=== PATIENT | female | born 1955 | race Caucasian/White ===

== ENCOUNTER → 2016-08-21 | Outpatient (CLI) | payer OTHER, SELFPAY | LOC: US 08-17 13:30 | DX: M79.89 Other specified soft tissue disorders (principal) | CPT/HCPCS: 93970 ==

== ENCOUNTER → 2016-11-14 | Outpatient (CLI) | payer OTHER | LOC: RAD 11-13 08:00 → NM 11-13 09:00 | DX: R10.11 Right upper quadrant pain (principal); R93.2 Abnormal findings on diagnostic imaging of liver and biliary tract | CPT/HCPCS: 78227; A9537; J2805 ==

== ENCOUNTER → 2016-11-15 | Outpatient (CLI) | payer OTHER | LOC: RAD 07:54 | DX: R10.11 Right upper quadrant pain (principal) | CPT/HCPCS: 74246 ==

== ENCOUNTER → 2020-10-07 | Outpatient (CLI) | payer BC, OTHER ==
[~2020-10-07] MED LIST: PHENERGAN 25 MG25 M1 PO; PREDNISONE20 MG PO; VIBRAMYCIN100 MG PO
== END ==
LOC: MAMO 09:01
DX: Z12.31 Encounter for screening mammogram for malignant neoplasm of breast (principal)
CPT/HCPCS: 77063; 77067

== ENCOUNTER → 2020-12-28 | Outpatient (CLI) | payer BC | LOC: EXRD 13:32 | DX: Z78.0 Asymptomatic menopausal state (principal) | CPT/HCPCS: 77080 ==

== ENCOUNTER → 2021-02-09 | Outpatient (CLI) | payer BC | LOC: US 10:00 | PROVIDERS: Internal Medicine Nephrology | DX: N17.9 Acute kidney failure, unspecified (principal) | CPT/HCPCS: 80053; 81001; 82570; 84156 ==

== ENCOUNTER → 2021-03-22 | Outpatient (CLI) | payer BC | LOC: KOH-I 13:11 | DX: F17.200 Nicotine dependence, unspecified, uncomplicated (principal); R91.1 Solitary pulmonary nodule | CPT/HCPCS: 71271 ==

== ENCOUNTER 2021-04-08 17:49 | Emergency (ER) | payer BC ==
[2021-04-08 19:05] LABS: HEMOGLOBIN 14.1 gm/dl (12.3-15.3); RED BLOOD COUNT 4.61 M/UL (4.00-5.10); WHITE BLOOD COUNT 9.5 K/UL (4.5-11.0)
[2021-04-08 19:39] LABS: BUN/CREATININE RATIO 16 (0-10)
== END 2021-04-08 22:07 | disposition home or self-care (01) ==
LOC: ER1 17:49
PROVIDERS: Physician Assistant
DX: M79.661 Pain in right lower leg (principal); R79.1 Abnormal coagulation profile; Z20.822 Contact with and (suspected) exposure to COVID-19; I10 Essential (primary) hypertension; J44.9 Chronic obstructive pulmonary disease, unspecified; F17.210 Nicotine dependence, cigarettes, uncomplicated; Z88.2 Allergy status to sulfonamides; Z86.718 Personal history of other venous thrombosis and embolism
CPT/HCPCS: 80053; 82550; 82553; 83874; 83880; 84484; 85025; 85379; 85610; 85730; 96372; 99284; J1650; Q9967; U0002

== ENCOUNTER → 2021-04-09 | Outpatient (CLI) | payer BC | LOC: US 09:57 | DX: M79.661 Pain in right lower leg (principal); R79.89 Other specified abnormal findings of blood chemistry; R22.42 Localized swelling, mass and lump, left lower limb; Z86.718 Personal history of other venous thrombosis and embolism | CPT/HCPCS: 93971 ==

== ENCOUNTER → 2021-05-17 | Outpatient (CLI) | payer BC | LOC: EXRD 13:14 | DX: R09.89 Other specified symptoms and signs involving the circulatory and respiratory systems (principal); M79.89 Other specified soft tissue disorders | CPT/HCPCS: 93971 ==

== ENCOUNTER → 2021-08-03 | Outpatient (CLI) | payer BC | LOC: EXRD 09:14 | DX: R05.9 Cough, unspecified (principal) | CPT/HCPCS: 71046 ==

== ENCOUNTER 2021-09-21 19:36 | Emergency (ER) | payer BC ==
[2021-09-21 21:44] LABS: HEMOGLOBIN 14.2 gm/dl (12.3-15.3); RED BLOOD COUNT 4.9 M/UL (4.00-5.10); WHITE BLOOD COUNT 11.6 K/UL (4.5-11.0)
[2021-09-21] MEDS ORDERED: CLEOCIN HCL300 MG PO (22:57)
== END 2021-09-22 00:31 | disposition home or self-care (01) ==
LOC: ER1 19:36
PROVIDERS: Physician Assistant
DX: L03.211 Cellulitis of face (principal); I10 Essential (primary) hypertension; J44.9 Chronic obstructive pulmonary disease, unspecified; F17.210 Nicotine dependence, cigarettes, uncomplicated; Z88.1 Allergy status to other antibiotic agents
CPT/HCPCS: 70487; 80048; 85025; 96374; 99284; Q9967

== ENCOUNTER 2021-09-22 10:35 | Emergency (ER) | payer BC ==
[~2021-09-22 10:35] MED LIST changes: +CLEOCIN HCL300 MG PO
[2021-09-22 11:46] LABS: HEMOGLOBIN 13.8 gm/dl (12.3-15.3); RED BLOOD COUNT 4.71 M/UL (4.00-5.10); WHITE BLOOD COUNT 11.8 K/UL (4.5-11.0)
== END 2021-09-22 13:22 | disposition home or self-care (01) ==
LOC: ER1 10:35
PROVIDERS: Physician Assistant
DX: L03.211 Cellulitis of face (principal); I10 Essential (primary) hypertension; J44.9 Chronic obstructive pulmonary disease, unspecified; F17.210 Nicotine dependence, cigarettes, uncomplicated; Z88.1 Allergy status to other antibiotic agents
CPT/HCPCS: 80053; 85025; 96374; 99283

== ENCOUNTER → 2021-11-13 | Outpatient (CLI) | payer BC | LOC: US 11-10 09:45 | DX: R74.8 Abnormal levels of other serum enzymes (principal) | CPT/HCPCS: 76705 ==

== ENCOUNTER → 2021-11-24 | Outpatient (CLI) | payer BC | LOC: MAMO 07:34 | DX: Z12.31 Encounter for screening mammogram for malignant neoplasm of breast (principal) | CPT/HCPCS: 77063; 77067 ==

== ENCOUNTER → 2021-12-14 | Outpatient (CLI) | payer BC | LOC: KOH-I 12:59 | DX: R60.0 Localized edema (principal); I82.619 Acute embolism and thrombosis of superficial veins of unspecified upper extremity | CPT/HCPCS: 93971 ==

== ENCOUNTER → 2021-12-21 | Outpatient (CLI) | payer BC | LOC: US 08:00 → MAMO 08:37 | DX: R92.1 Mammographic calcification found on diagnostic imaging of breast (principal) | CPT/HCPCS: 77065; G0279 ==